=== PATIENT | male | born 1960 | race Caucasian/White ===

== ENCOUNTER 2016-09-02 14:59 | Inpatient (IN) ==
--- NOTE | 2016-09-02 18:58 | PROVIDER DOCUMENTATION ---
HPI-General Adult - General Chief Complaint: Edema Stated Complaint: RT LEG SWOLLEN Time Seen by Provider: 09/02/16 18:35 Source: patient Allergies/Adverse Reactions: Patient Allergies Allergy/AdvReac Type Severity Reaction Status Date / Time No Known Allergies Allergy Verified 09/02/16 20:51 Home Medications: Home Medication List Medication Instructions Recorded Confirmed Last Taken Type Rivaroxaban [Xarelto] 15 mg PO BID #60 tablet 08/29/16 09/02/16 09/02/16 09:00 Rx Ibuprofen [Ibuprofen] 1 each PO TID 09/02/16 09/02/16 Unknown History Multivitamin [Multivitamins] 1 each PO DAILY 09/02/16 09/02/16 Unknown History - History of Present Illness -Gen Adult Nature of Presenting Problems: 56 year old WM presents with c/o increased pain, selling to RLE and new shortness of breath for 2 days. pt was diagnosed with a DVT in RLE 08/29/2016 in this ED, started on xarelto, which he has taken as prescribed. pt reports today he started work for the first time and he stands on his feet all day and developed increased pain/swelling and his employer made him seek immediate treatment. pt reports when he was home over the weekend and was able to elevate his RLE, the swelling and pain improved. pt also reports he has been having shortness of breath over the last two days with exertion. this is new for him. pt reports a history of DVT in 2009 that migrated to his lungs. Location of Pain/Injury: reports: lower extremity Quality of Pain: reports: aching, dull Severity: reports: mild Onset/Duration: reports: 1 week ago Timing: reports: still present, constant, getting worse Review of Systems - Adult - REVIEW OF SYSTEMS - ADULT Constitutional: reports: no symptoms reported. denies: chills, fever Eyes: reports: no symptoms reported. denies: discharge, blurred vision, double vision Ears, Nose, Mouth & Throat: reports: no symptoms reported. denies: ear discharge, ear pain, nose pain, loose teeth, throat pain, throat swelling Cardiovascular: reports: see HPI, edema. denies: chest pain, heart murmur, irregular heart rate, orthopnea, palpitations, poor circulation, PND, syncope Respiratory: reports: see HPI, dyspnea on exertion, shortness of breath. denies : chronic cough, cough, excessive sputum production, hemoptysis, pleurisy, wheezing Gastrointestinal: reports: no symptoms reported. denies: abdominal pain, diarrhea, nausea, poor appetite, vomiting Genitourinary: reports: no symptoms reported. denies: dysuria, hematuria, urgency Musculoskeletal: reports: no symptoms reported. denies: bone pain, joint pain, joint swelling, muscle weakness, neck pain Integumentary: reports: no symptoms reported Neurological: reports: no symptoms reported. denies: ataxia, dizziness/vertigo Psychiatric: reports: no symptoms reported Endocrine: reports: no symptoms reported Hematologic/Lymphatic: reports: see HPI, blood clots Allergic/Immunologic: reports: no symptoms reported All Other Systems: Reviewed and Negative Past History - Adult - PAST MEDICAL HISTORY-ADULT Review of Records: reports: Old Records Reviewed, Nursing Assessment Review, Medications Reviewed, Social history reviewed & non-contributory. Major Childhood Illnesses: reports: denies history Cardiovascular: reports: blood clots (PE/DVT) Respiratory: reports: denies history Gastrointestinal: reports: denies history Obstetrical/Gynecological: reports: denies history Genitourinary: reports: denies history Musculoskeletal: reports: denies history Neurological: reports: denies history Endocrine/Immune: reports: other (DVT) Other Conditions: reports: denies history - PRIOR SURGERIES/PROCEDURES Surgical/Procedure History: reports: tonsillectomy - IMMUNIZATION STATUS Childhood Immunizations: See Nurse Assessment Flu Vaccine: See Nurse Assessment - FAMILY HISTORY Family History: reviewed, not pertinent - SOCIAL HISTORY Smoking: quit greater than 1 year, cigarettes Substance Use: none/never Alcohol Use Frequency: never Physical Exam-General - PHYSICAL EXAM-ADULT Initial Vital Signs Reviewed: Yes - CONSTITUTIONAL General Appearance: appears well, alert, no apparent distress. negative: mild distress, moderate distress, severe distress - EYES Eyes: pink conjunctivae - HEAD, EARS, NOSE, MOUTH & THROAT HENMT: normocephalic/atraumatic, moist mucous membranes - NECK Neck: non-tender, full range of motion, supple, normal inspection - RESPIRATORY Respiratory: chest non-tender, lungs clear, normal breath sounds, no pleuratic chest pain, no respiratory distress, no accessory muscle use. negative: respiratory distress, decreased breath sounds, accessory muscle use, crackles, rales, rhonchi, stridor, wheezing - CARDIOVASCULAR Cardiovascular: normal peripheral pulses, regular rate, rhythm. negative: no edema, no gallop, no JVD - GASTROINTESTINAL (ABDOMEN) Abdominal Exam: non tender, soft - MUSCULOSKELETAL Back Exam: normal inspection, no CVA tenderness, no vertebral tenderness. negative: CVA tenderness, decreased range of motion, swelling, vertebral tenderness Extremity: normal range of motion, non-tender, normal gait, normal inspection, normal capillary refill, pelvis stable, calf tenderness (RLE), pedal edema, swelling (+1-2 pitting edema to RLE with diffuse tenderness.), tenderness. negative: no pedal edema, no calf tenderness, abnormal NV exam, deformity, erythema, inflammation, joint effusion, pulse deficit, slow capillary refill Peripheral Pulses: radial (R): 3+, radial (L): 3+, dorsalis-pedis (R): 2+, dorsalis-pedis (L): 3+ - SKIN Integumentary: normal color, normal turgor, warm/dry - NEUROLOGIC Neurologic: grossly normal, no motor/sensory deficits - PSYCHIATRIC Psych/Mental Status: normal mood/affect, normal thought content, normal thought process, oriented x 3 Progress - PLAN OF CARE/RESULTS Progress/Plan/Lab Results: Vital Signs - 8 hr 09/02/16 15:55 09/02/16 17:30 Temperature 98.5 F 98.0 F Pulse Rate 97 H 88 Respiratory Rate 18 18 Blood Pressure 191/108 162/85 O2 Sat by Pulse Oximetry 99 100 Orders Category Date Time Status Saline Loc NOW Care 09/02/16 18:49 Active ANGIOGRAM/PULMONARY ARTERIES [CT] Stat Exams 09/02/16 18:50 Ordered CBC WITH DIFF [HEME] Stat Lab 09/02/16 18:49 Uncollected CMP [COMPREHENSIVE METABOLIC PANEL] [CHEM] Stat Lab 09/02/16 18:49 Uncollected PROTIME WITH INR [COAG] Stat Lab 09/02/16 18:50 Ordered PTT [COAG] Stat Lab 09/02/16 18:50 Ordered Laboratory Tests 09/02/16 09/02/16 09/02/16 18:53 18:53 18:53 WBC 7.77 RBC 5.17 Hgb 16.2 Hct 47.2 MCV 91.3 MCH 31.3 H MCHC 34.3 RDW Std Deviation 12.8 Plt Count 321 MPV 10.1 Immature Gran % (Auto) 0.6 H Neut % (Auto) 56.7 Lymph % (Auto) 26.9 [place] % (Auto) 10.3 H Eos % (Auto) 4.6 Baso % (Auto) 0.9 H Immature Gran # (Auto) 0.05 H Neut # (Auto) 4.40 Lymph # (Auto) 2.09 [place] # (Auto) 0.80 H Eos # (Auto) 0.36 Baso # (Auto) 0.07 PT 11.3 INR 1.07 PTT (Actin FS) 31.6 Sodium 140 Potassium 3.9 Chloride 100 Carbon Dioxide 23 L Anion Gap 17 BUN 18 Creatinine 0.8 Estimated GFR/1.73 m2 > 60 BUN/Creatinine Ratio 23 Glucose 95 Calculated Osmolality 281 Calcium 9.1 Total Bilirubin 0.37 AST 20 ALT 23 Alkaline Phosphatase 101 Total Protein 7.4 Albumin 4.4 Globulin 3.0 Albumin/Globulin Ratio 1.5 Orders Category Date Time Status Saline Loc NOW Care 09/02/16 18:49 Active ANGIOGRAM/PULMONARY ARTERIES [CT] Stat Exams 09/02/16 18:50 Completed ABG [RESP] Stat Lab 09/02/16 20:57 Ordered CBC WITH DIFF [HEME] Stat Lab 09/02/16 18:53 Completed CMP [COMPREHENSIVE METABOLIC PANEL] [CHEM] Stat Lab 09/02/16 18:53 Completed PROTIME WITH INR [COAG] Stat Lab 09/02/16 18:53 Completed PTT [COAG] Stat Lab 09/02/16 18:53 Completed Vital Signs - 24 hr 09/02/16 15:55 09/02/16 17:30 Temperature 98.5 F 98.0 F Pulse Rate 97 H 88 Respiratory Rate 18 18 Blood Pressure 191/108 162/85 O2 Sat by Pulse Oximetry 99 100 Reviewed radiology findings, H&P, labs with Dr. Poon, agrees with plan of care, treatment, admission, will perform ABG and consult hospitalist when complete-supervisory visit. Reviewed ABG results with Dr. Poon, proceed with admit. Laboratory Tests 09/02/16 09/02/16 09/02/16 18:53 18:53 18:53 WBC 7.77 RBC 5.17 Hgb 16.2 Hct 47.2 MCV 91.3 MCH 31.3 H MCHC 34.3 RDW Std Deviation 12.8 Plt Count 321 MPV 10.1 Immature Gran % (Auto) 0.6 H Neut % (Auto) 56.7 Lymph % (Auto) 26.9 [place] % (Auto) 10.3 H Eos % (Auto) 4.6 Baso % (Auto) 0.9 H Immature Gran # (Auto) 0.05 H Neut # (Auto) 4.40 Lymph # (Auto) 2.09 [place] # (Auto) 0.80 H Eos # (Auto) 0.36 Baso # (Auto) 0.07 PT 11.3 INR 1.07 PTT (Actin FS) 31.6 Specimen Type Sample Site pH pCO2 pO2 HCO3 Base Excess Oxyhemoglobin ABG O2 Sat (Calculated) ABG O2 Saturation ABG Carboxyhemoglobin ABG Methemoglobin Magdiel Test A-a O2 Difference Total Hemoglobin Lactate Blood Gas Modality FiO2 % Sodium 140 Potassium 3.9 Chloride 100 Carbon Dioxide 23 L Anion Gap 17 BUN 18 Creatinine 0.8 Estimated GFR/1.73 m2 > 60 BUN/Creatinine Ratio 23 Glucose 95 Calculated Osmolality 281 Calcium 9.1 Total Bilirubin 0.37 AST 20 ALT 23 Alkaline Phosphatase 101 Troponin T Total Protein 7.4 Albumin 4.4 Globulin 3.0 Albumin/Globulin Ratio 1.5 09/02/16 09/02/16 20:57 21:35 WBC RBC Hgb Hct MCV MCH MCHC RDW Std Deviation Plt Count MPV Immature Gran % (Auto) Neut % (Auto) Lymph % (Auto) [place] % (Auto) Eos % (Auto) Baso % (Auto) Immature Gran # (Auto) Neut # (Auto) Lymph # (Auto) [place] # (Auto) Eos # (Auto) Baso # (Auto) PT INR PTT (Actin FS) Specimen Type ARTERIAL Sample Site R RADIAL pH 7.43 pCO2 37 pO2 74 HCO3 25.3 Base Excess 0.6 Oxyhemoglobin 94.7 L ABG O2 Sat (Calculated) 21.0 ABG O2 Saturation 96.9 ABG Carboxyhemoglobin 1.20 ABG Methemoglobin 1.1 Magdiel Test YES A-a O2 Difference 29.0 Total Hemoglobin 15.8 Lactate 0.80 Blood Gas Modality ROOM AIR FiO2 % 21.0 Sodium Potassium Chloride Carbon Dioxide Anion Gap BUN Creatinine Estimated GFR/1.73 m2 BUN/Creatinine Ratio Glucose Calculated Osmolality Calcium Total Bilirubin AST ALT Alkaline Phosphatase Troponin T < 0.010 Total Protein Albumin Globulin Albumin/Globulin Ratio Result Diagrams: 09/02/16 18:53 07/17/17 18:53 - CT/MRI 1 CT Study: Angiogram, Thorax Impression: Abnormal (bilateral pulmonary emboli per Dr. Mireles, see EMR for) - CONSULTS/PCP/HOSPITALIST Notification #1 *Consult/PCP/Hospitalist*: Dr. Espino Time Discussed: 21:30 Consult Disposition: other (reviewed radiology, H&P, labs with Dr. Espino, recommends adding troponin to labs, if normal, dc home, follow up with Dr. Hebert tomorrow, continue Xarelto, if tropnonin elevated, will admit. Reviewed discussion with Dr. Poon, agrees with Dr. Espino.) #2 Consult: Dr. Espino Time Discussed: 22:00 Consult Disposition: other (troponin is negative, he reviewed CT scan, would like Dr. Hebert to be called and seek advice.) #3 Consult: Dr. Hebert Time Discussed: 22:10 Consult Disposition: Admit (reviewed H&P, labs, radiology with Dr. Hebert, recomends admission, Lovenox and he will see patient tomorrow as a consult. Immediately notifed Dr. Espino of discussion with Dr. Hebert, he will admit and see patient in the ED. Dr. Poon notified of discussions, agrees with plan of care.) Departure - Departure Date of Disposition Decision: 09/02/16 Time of Disposition Decision: 20:58 DIAGNOSIS: DVT (deep venous thrombosis) Qualifiers: DVT location: lower extremity Affected thrombotic vein of extremity: popliteal Chronicity: acute Laterality: right Qualified Code(s): I82.431 - Acute embolism and thrombosis of right popliteal vein Pulmonary embolus Qualifiers: Pulmonary embolism type: other Chronicity: acute Acute cor pulmonale presence: without acute cor pulmonale Qualified Code(s): I26.99 - Other pulmonary embolism without acute cor pulmonale Disposition: ADMITTED INPATIENT 09 Certified Medical Emergency: Emergent Condition: Stable Referrals and Follow-Ups: Hugo Lorenz MD [Primary Care Provider] - - Critical Care Note This patient required my direct & personal management of CC.: No Attestation - Physician/ EUGENIO Attestation Patient care was provided by Advanced Practice Provider:: Yes Advanced Practice Provider:: Anitra Acosta Advanced Practice Provider documentation review:: The Mid-level provider documentation, treatment plan and medical decision making was reviewed by the physician who agrees with all treatment and medical decision making by the MLP.
[2016-09-02 19:06] LABS: MANUAL DIFF NEEDED? NO
[2016-09-02 19:16] LABS: BASO% 0.9 % (0.0-0.8); EOS# 0.36 X1000 (0.0-0.7); EOS% 4.6 % (0.0-10.0); HEMATOCRIT 47.2 % (42.0-52.0); HEMOGLOBIN 16.2 g/dL (14.0-18.0); IMM GRAN# 0.05 X1000 (0.0-0.04); IMM GRAN% 0.6 % (0.0-0.5); LYMPH# 2.09 X1000 (1.2-3.4); LYMPH% 26.9 % (20.5-51.1); MCH 31.3 PG (27-31); MCHC 34.3 g/dL (33-37); MCV 91.3 FL (81-99); MONO% 10.3 % (1.7-9.3); MPV 10.1 FL (7.4-10.4); NEUT% 56.7 % (42.2-75.2); PLT 321 X1000 (130-400); RBC 5.17 XMIL (4.7-6.1)
[2016-09-02 19:22] LABS: INR 1.07; PROTIME 11.3 Seconds (9.2-11.7); PTT 31.6 Seconds (22.0-36.0)
[2016-09-02 20:21] LABS: AGAP 17; ALBUMIN 4.4 g/dL (3.5-5.0); ALKALINE PHOSPHATASE 101 U/L (32-122); BUN 18 mg/dL (8-22); CALCIUM 9.1 mg/dL (8.8-10.2); CHLORIDE 100 mmol/L (98-107); COSMO 281; GOT 20 U/L (10-34); GPT 23 U/L (10-44); POTASSIUM 3.9 mmol/L (3.5-5.1); SODIUM 140 mmol/L (136-145); TCO2 23 mmol/L (25-35); TOTAL BILIRUBIN 0.37 mg/dL (0.20-1.00); TOTAL PROTEIN 7.4 g/dL (6.3-8.3)
--- NOTE | 2016-09-02 20:50 | Diag Imaging Result Doc PS360 ---
EXAM: ANGIOGRAM/PULMONARY ARTERIES HISTORY: RLE DVT; c/o shortness of breath TECHNIQUE: CT of the chest with intravenous contrast and dose reduction (clarity.) COMMENT: There are filling defects present in upper lobe segmental arteries on the right and in the right main and interlobar pulmonary branches. There are also thrombi present across the upper lobe branches on the left and in the lower lobe basal segmental branches bilaterally. The aorta is not distended and there is no evidence of dissection. There are calcified plaques in the posterior right hemithorax and over the right hemidiaphragm. There is atelectasis or fibrosis present in the right lower lobe there is no evidence of abnormal fluid collections or significant adenopathy. There is a bone island in the right glenoid fossa IMPRESSION: Bilateral pulmonary emboli. Electronically signed by Bear Mireles 09/02/2016 8:48 PM
[2016-09-02 21:11] LABS: ALLEN TEST YES; BE 0.6 mmoll (-3.0-3.0); BLOOD TYPE ARTERIAL; DRAW SITE R RADIAL; METHB 1.1 % (0.0-1.5); MODALITY ROOM AIR; PCO2(98.6) 37 mmHg (35-45); PO2(98.6) 74 mmHg (60-100); SAMPLE BLOOD; SAO2 96.9 % (95.0-100.0); THB 15.8 g/dL (11.5-17.4); pH(98.6) 7.43 (7.35-7.45)
[2016-09-02 22:42] LABS: URINE CULTURE NEEDED? NO; URINE MICRO REVIEW NEEDED? NO; URINE SOURCE CLEAN CATCH
[2016-09-02 22:45] LABS: BILIRUBIN URINE NEGATIVE (NEGATIVE); BLOOD URINE NEGATIVE (NEGATIVE); COLOR YELLOW; GLUCOSE URINE NEGATIVE (NEGATIVE); LEUKOCYTES URINE NEGATIVE (NEGATIVE); NITRITE URINE NEGATIVE (NEGATIVE); PH URINE 5.5; PROTEIN URINE NEGATIVE (NEGATIVE); TURBIDITY URINE CLEAR (CLEAR); UROBILINOGEN URINE NORMAL (NORMAL)
[2016-09-02 22:46] LABS: UR EPITHELIAL CELLS <10 /HPF (<10); URINE BACTERIA NEGATIVE /HPF; URINE RBC <10 /HPF (<10); URINE WBC <10 /HPF (<10)
[2016-09-02] MEDS ORDERED: NORVASC PO ONE (23:08)
[2016-09-03] MEDS ORDERED: TYLENOL PO PRN (00:27)
[2016-09-03] MEDS ORDERED: ZOFRAN IV PRN (00:27)
[2016-09-03] MEDS ORDERED: DUONEB (A & A) INH PRN (00:27)
[2016-09-03] MEDS ORDERED: NS 1,000 ML IV SCH (00:27)
[2016-09-03] MEDS ORDERED: LOVENOX SUBQ SCH (00:27)
[2016-09-03] MEDS: LOVENOX SUBQ SCH ×2 (01:03→13:20)
--- NOTE | 2016-09-03 02:28 | HISTORY AND PHYSICAL ---
PRIMARY CARE PHYSICIAN: None. REASON FOR ADMISSION: A 5-day history of right lower extremity swelling, a 1-day history of dyspnea. HISTORY OF PRESENT ILLNESS: Mr. Kirit Peck is a 56-year-old male with a prior history of DVT and PE over 6 years ago. He comes in to our facility at the behest of the physicians at the urgent care facility. Five days ago, the patient complained of right lower extremity swelling, and underwent a sonogram of his leg. It was notable for a DVT in his right lower extremity. He was sent to the ER with Xarelto, which he got 2 days later, and has been taking it for the last 3 days. Comes in at the behest of the urgent care physician, who was somewhat a little concerned that he may have extended his problems to a pulmonary embolism. The patient had just resumed work today, and has been on his legs all day, and noted that his leg swelling had gotten worse, 24 hours after he had good success elevated it over the weekend. He denies any chest pain. He denies any nausea, vomiting. He denies any palpitations. He says he only had a brief episode of shortness of breath while washing his face this morning. No other cardiorespiratory complaints, redness in the extremity. No dizziness. REVIEW OF SYSTEMS: No GI, , musculoskeletal, rash, polyuria, polydipsia symptoms. No visual symptoms, headache. Twelve system review was done. Positive findings per HPI. ALLERGIES: None. MEDICATIONS: Was taking Xarelto 15 mg b.i.d., Motrin 800 mg t.i.d., and multivitamin tablet. SURGICAL HISTORY: Notable for testicular cystectomy. SOCIAL HISTORY: Drinks about 4 ounces of liquor a week. Lives with his . No smoking. No illicit drug use. FAMILY HISTORY: Heart disease, colon cancer. No thrombophilia in the family. LABORATORY STUDIES: CAT scan showed bilateral pulmonary emboli in the segmental arteries. EKG showed normal sinus rhythm. No evidence of right axis deviation or right ventricular hypertrophy. No ST-T wave changes consistent with ischemia. White count 7000, hemoglobin and hematocrit of 16 and 47, platelets 321,000, normal differential. Chemistries totally normal, including CMP. PT/PTT is normal. Blood gas normal. pH 7.43, pCO2 37, PO2 74 on room air. Troponin is negative. PHYSICAL EXAMINATION: GENERAL: A middle-aged man who is not in acute distress. He is A and O x3. Normal mood and affect. HEENT: Head is normocephalic, atraumatic. Eyes: PERRLA, EOMI. He is anicteric and not pale. ENT and oropharyngeal exam is grossly normal. No central cyanosis noted. VITAL SIGNS: Blood pressure 160/85 heart rate 88, respirations 18, temperature 98, 100% on room air. NECK: Supple. No JVD or carotid bruit. No thyromegaly. CHEST: Clear to auscultation. Good air entry in both lung mireles. CARDIOVASCULAR: First and second heart sounds heard. No gallops, murmurs, rubs. Rhythm is regular. ABDOMEN: Protuberant and soft. No tenderness. No organomegaly. Bowel sounds are normal. RECTAL: Deferred at this time. EXTREMITIES: Trace to 1+ pitting edema of the right lower extremity. Pulses distally in both extremities are good. No clubbing or peripheral cyanosis. NEUROLOGIC: No focal deficits. SKIN: Intact. No breakdown or lesions. No erythema. MUSCULOSKELETAL: Exam is grossly normal. ASSESSMENT: 1. Right lower extremity deep venous thrombosis. 2. Bilateral pulmonary embolism. 3. Probable thrombophilia. 4. Hypertension. PLAN: At this time, the case was called to Dr. Diaz. He wanted the patient to be admitted with Lovenox. We will see patient in the a.m. Thrombophilia workup has been ordered. The patient does not portray any evidence of right ventricular strain at this point in time. Echocardiogram will be also useful in this patient to document this, which depending how severe, may warrant a possible tPA if he is unstable. At this point in time the patient is not unstable, and can continue with Lovenox. The patient's blood pressure is elevated, and has been so even 3 days ago. We will start patient on Norvasc x1 dose and reassess in the a.m. Keep leg elevated. Treat symptomatically for any dyspnea with breathing treatments. cc: Twyla Espino MD
[2016-09-03 05:42] LABS: MANUAL DIFF NEEDED? NO
[2016-09-03 05:49] LABS: BASO% 1.1 % (0.0-0.8); EOS% 6.2 % (0.0-10.0); HEMATOCRIT 42.5 % (42.0-52.0); HEMOGLOBIN 14.7 g/dL (14.0-18.0); IMM GRAN# 0.06 X1000 (0.0-0.04); IMM GRAN% 0.9 % (0.0-0.5); LYMPH# 1.76 X1000 (1.2-3.4); LYMPH% 27.3 % (20.5-51.1); MCH 31.6 PG (27-31); MCHC 34.6 g/dL (33-37); MCV 91.4 FL (81-99); NEUT% 50.5 % (42.2-75.2); PLT 280 X1000 (130-400); RBC 4.65 XMIL (4.7-6.1)
[2016-09-03 06:10] LABS: AGAP 12; ALBUMIN 3.4 g/dL (3.5-5.0); ALKALINE PHOSPHATASE 88 U/L (32-122); BUN 16 mg/dL (8-22); CALCIUM 8.2 mg/dL (8.8-10.2); CHLORIDE 102 mmol/L (98-107); COSMO 278; GOT 15 U/L (10-34); GPT 19 U/L (10-44); POTASSIUM 3.8 mmol/L (3.5-5.1); SODIUM 138 mmol/L (136-145); TCO2 24 mmol/L (25-35); TOTAL BILIRUBIN 0.43 mg/dL (0.20-1.00); TOTAL PROTEIN 5.8 g/dL (6.3-8.3)
--- NOTE | 2016-09-03 07:31 | EKG Report ---
Test Performed on : 09/02/2016 9:12:38 PM Test Reason : GI Bleeding Blood Pressure : / mmHG Vent. Rate : 076 BPM Atrial Rate : 076 BPM P-R Int : 150 ms QRS Dur : 090 ms QT Int : 380 ms P-R-T Axes : 038 037 047 degrees QTc Int : 427 ms Normal sinus rhythm. Normal ECG When compared with ECG of 28-AUG-2009 05:38, Vent. rate has decreased BY 39 BPM Questionable change in QRS axis T wave inversion no longer evident in Inferior leads Unconfirmed Result
--- NOTE | 2016-09-03 16:29 | ECHO REPORT ---
ORDER DATE: 09/03/2016 INDICATION: Lower extremity swelling, dyspnea, right lower extremity DVT with history of bilateral pulmonary embolisms. FINDINGS: 1. The right atrium appears normal in size at 3.7 cm. 2. Trace tricuspid regurgitation. RV systolic pressure is only measured at 13.3. 3. Normal RV size and what appears to be normal RV systolic function. 4. Trace pulmonic insufficiency. 5. Normal left atrial size at 3.8 cm. 6. There is no evidence of mitral valve prolapse. Trace mitral regurgitation. 7. Normal LV size, end-diastolic dimension of 4.3. Normal wall thicknesses with a posterior and interventricular septal wall thickness of 0.9 cm each. Normal LV systolic function. Calculated EF of 64% with normal wall motion. 8. Aortic valve opens well. It is trileaflet. There is trace aortic insufficiency with no evidence of stenosis. 9. Aorta appears normal visualized segments. 10. No pericardial effusion seen. cc: MD Twyla Mckinney MD
[2016-09-03 18:01] LABS: IRON SATURATION 18 %; TIBC 337 ug/dL; TOTAL IRON 61 ug/dL (53-167); UNBOUND IRON 276 ug/dL (112-346)
--- NOTE | 2016-09-03 18:52 | PROGRESS NOTE ---
DATE: 09/03/2016 SUBJECTIVE: Patient is feeling fine. No chest pain. Mild swelling in the right leg. OBJECTIVE: Vital Signs: Temperature 98 degrees, heart rate 83, respiratory rate 18, blood pressure 143/77, O2 saturation 94% on room air. General: This is a 56-year-old male, lying in bed, in no acute distress. HEENT: Head is normocephalic, atraumatic. Anicteric sclerae and pale conjunctivae. Mucous membranes moist. Neck: Supple. No JVD noted. No carotid bruits. No lymphadenopathy. No thyromegaly. Cardiovascular: S1 S2 heard. No murmurs, gallops or rubs. Regular rate and rhythm. Respiratory: Clear bilaterally to auscultation. No work of breathing or using accessory muscles. Abdomen: Soft, nontender to palpation. Bowel sounds present. No organomegaly. Extremities: Peripheral pulses present in both legs. Neurologic: Patient alert and oriented x3. Able to move 4 extremities. LABORATORY: Reviewed. ASSESSMENT AND PLAN: 1. Right lower extremity deep vein thrombosis. 2. Bilateral pulmonary embolism. 3. Hypertension. The patient was admitted to the hospital because there was a concern that the DVT that this patient has been diagnosed with few days ago has been getting worse. At this point, the Xarelto that the patient was taking was discontinued and with the patient was placed on Lovenox. Hematology/Oncology has been consulted. We may let this patient go if okay with Hematology tomorrow. cc: Emiliano Blanton MD
[2016-09-04] MEDS: LOVENOX SUBQ SCH (01:16)
[2016-09-04 05:33] VITALS: BP 141/85
--- NOTE | 2016-09-05 10:24 | DISCHARGE SUMMARY ---
ADMISSION DATE: 09/02/2016 DISCHARGE DATE: 09/04/2016 CONSULTATIONS: None. PERTINENT PROCEDURES: 1. Pulmonary arteriogram showed bilateral pulmonary emboli. 2. Echocardiogram showed an EF of 64% with normal wall motion. DISCHARGE DIAGNOSES: 1. Right lower extremity deep vein thrombosis. Patient being discharged on Eliquis. 2. Bilateral pulmonary emboli. Patient being discharged on Eliquis. 3. Hypertension, stable. Patient was not on any home medications. HOSPITAL COURSE: Briefly, Mr. Peck is a 56-year-old male with a prior history of DVT and PE over 6 years ago. He had been seen at urgent care facility 5 days prior complaining of right lower extremity swelling and underwent a sonogram of his leg. It was notable for DVT in his right lower extremity. He was sent to the ER with Xarelto which he had got 2 days later. He had been taking it for 3 days. The urgent care physician was concerned that it may have extended to a pulmonary embolism. The patient had resumed work and had been on his legs all day and noted that his leg swelling had gotten worse. He did admit to a brief episode of shortness of breath while washing his face, but no other cardiorespiratory complaints. A CT scan showed bilateral pulmonary emboli in the segmental arteries. EKG showed normal sinus rhythm. No axis deviation or right ventricular hypertrophy. No ST-T wave change consistent with ischemia. His troponins were negative. The patient was admitted for right lower extremity DVT, as well as bilateral pulmonary embolism. The case was called to Dr. Diaz. He wanted the patient admitted with Lovenox with a thrombophilia workup. His echocardiogram revealed normal EF with normal wall motion. The patient initially was on Xarelto; he was transitioned to Lovenox per Hem-Onc. He has now been transitioned to Eliquis. He is appropriate for discharge home today. VITAL SIGNS: Temperature is 97.6 degrees, heart rate 73, respirations 16, blood pressure 141/85, O2 is 99% on room air. DISCHARGE DIET: Healthy heart. DISCHARGE MEDICATIONS: Eliquis 5 mg p.o. b.i.d. FOLLOW UP: Patient is being discharged home with self care. He will follow up with Dr. Diaz in 2 weeks. He can follow up with his primary care physician, Dr. Hugo Lorenz, in 7-10 days. Patient can return to the ED for any worsening of symptoms. He is to take his medication as prescribed. DISCHARGE TIME: 30 minutes. Dictated by DOUG Haddad for Emiliano Blanton MD cc: MD Hugo Dennis MD
== END 2016-09-04 12:45 | disposition home or self-care (01) ==
LOC: ED 14:59 → SUATTDRO 23:35 → 4N 23:35
PROVIDERS: ATTEND Internal Medicine